=== PATIENT | female | born 2000 | race Caucasian/White ===

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

== ENCOUNTER → 2020-02-06 | Outpatient (REF) | payer OTHER ==
[2020-03-21 14:16] LABS: CHLAMYDIA DNA AMPLIFICATION NEGATIVE (NEGATIVE); GC DNA AMPLIFICATION NEGATIVE (NEGATIVE)
== END ==
LOC: M WUC 11:13
PROVIDERS: ATTEND Physician Assistant
DX: R30.0 Dysuria (principal)

== ENCOUNTER → 2020-03-17 | Outpatient (CLI) | payer BC, OTHER ==
[2020-03-17 12:08] LABS: BASO # 0.1 10^3/uL (0.0-0.2); BASO % 0.7 % (0.0-1.0); EOS # 0.1 10^3/uL (0.0-0.5); EOS % 1.3 % (0.0-3.0); HEMOGLOBIN 13.7 g/dl (12.0-15.5); LYMPH # 2.6 10^3/uL (1.5-5.0); LYMPH % 36.9 % (24.0-44.0); MEAN CORPUSCULAR HEMOGLOBIN 31.1 pg (27.0-33.0); MEAN CORPUSCULAR HGB CONC 33.4 g/dl (32.0-36.5); MEAN CORPUSCULAR VOLUME 93.2 fl (80.0-96.0); MONO # 0.5 10^3/uL (0.0-0.8); NEUTROPHILS # 3.8 10^3/uL (1.5-8.5); PLATELET COUNT, AUTOMATED 210 10^3/uL (150-450)
[2020-03-17 12:40] LABS: ALBUMIN 3.9 GM/DL (3.2-5.2); ALT/SGPT 15 U/L (12-78); AMYLASE 53 U/L (25-115); BILIRUBIN,TOTAL 0.2 MG/DL (0.2-1.0); BLOOD UREA NITROGEN 8 MG/DL (7-18); CALCIUM LEVEL 9.3 MG/DL (8.5-10.1); CARBON DIOXIDE LEVEL 27 MEQ/L (21-32); CHLORIDE LEVEL 106 MEQ/L (98-107); CREATININE FOR GFR 0.82 MG/DL (0.55-1.30); GLUCOSE, FASTING 87 MG/DL (70-100); LIPASE 92 U/L (73-393); POTASSIUM SERUM 3.8 MEQ/L (3.5-5.1); SODIUM LEVEL 140 MEQ/L (136-145); TOTAL PROTEIN 7.6 GM/DL (6.4-8.2)
[2020-03-17 15:42] LABS: CHLAMYDIA DNA AMPLIFICATION NEGATIVE (NEGATIVE); GC DNA AMPLIFICATION NEGATIVE (NEGATIVE)
--- NOTE | 2020-04-02 11:56 | REP ---
ABDOMINAL RADIOGRAPH: CLINICAL: Lower abdominal pain. TECHNIQUE: Two supine views of the abdomen and pelvis. FINDINGS: The bowel gas pattern is nonspecific. No organomegaly. No abnormal calcifications or foreign body. Skeletal structures are intact. IMPRESSION: Normal nonspecific examination. MTDD
== END ==
LOC: M WUC 09:15
PROVIDERS: ATTEND Physician Assistant
DX: R10.30 Lower abdominal pain, unspecified (principal)

== ENCOUNTER → 2020-08-13 | Outpatient (REF) | payer BC ==
[2020-08-13 18:39] LABS: HEMOGLOBIN 12.6 g/dl (12.0-15.5); MEAN CORPUSCULAR HEMOGLOBIN 30.3 pg (27.0-33.0); MEAN CORPUSCULAR HGB CONC 33.2 g/dl (32.0-36.5); MEAN CORPUSCULAR VOLUME 91.3 fl (80.0-96.0); PLATELET COUNT, AUTOMATED 197 10^3/uL (150-450); RED BLOOD COUNT 4.16 10^6/uL (4.00-5.40); WHITE BLOOD COUNT 7.8 10^3/uL (4.0-10.0)
[2020-08-13 19:45] LABS: HEPATITIS C VIRUS ABY INDEX 0.1 INDEX (<0.8); HIV 1&2 SCREEN CENTAUR NEGATIVE (NEGATIVE)
== END ==
LOC: M PLALAB 15:37
PROVIDERS: ATTEND Advanced Practice Midwife
DX: Z34.91 Encounter for supervision of normal pregnancy, unspecified, first trimester (principal); Z3A.09 9 weeks gestation of pregnancy

== ENCOUNTER → 2020-08-22 | Outpatient (CLI) | payer BC | LOC: M LABSMTC 10:34 | PROVIDERS: ATTEND Anesthesiology | DX: Z01.812 Encounter for preprocedural laboratory examination (principal); Z20.822 Contact with and (suspected) exposure to COVID-19 ==

== ENCOUNTER 2020-08-25 09:59 | Day surgery (SDC) | payer BC, OTHER ==
[~2020-08-25] VITALS: Ht 180.3 cm; Wt 82.6 kg
[~2020-08-25 09:59] MED LIST: LR 1,000 ML IV ONE
[2020-08-25] MEDS ORDERED: dexameTHASONE 4 MG/ML 1ML VIAL (J1100 PER 1MG) As Ordered ONE (10:43)
[2020-08-25] MEDS ORDERED: LIDOCAINE 2% 100MG/5ML SDV (FOR ANES.) As Ordered ONE (10:43)
[2020-08-25] MEDS ORDERED: ONDANSETRON 4MG/2ML VIAL As Ordered ONE (10:43)
[2020-08-25] MEDS ORDERED: MIDAZOLAM INJ 2MG/2ML VIAL (J2250 PER 1MG) As Ordered ONE (10:43)
[2020-08-25] MEDS ORDERED: propofoL 200 MG/20 ML VIAL As Ordered ONE (10:43)
[2020-08-25] MEDS ORDERED: fentaNYL 100 MCG/2 ML INJECTION (J3010) As Ordered ONE (10:43)
[2020-08-25] MEDS ORDERED: SCOPOLAMINE 1MG TRANSDERMAL PATCH As Ordered ONE (11:12)
[2020-08-25] MEDS ORDERED: KETOROLAC 60MG 2ML VIAL As Ordered ONE (11:45)
[2020-08-25] MEDS ORDERED: METOCLOPRAMIDE INJ 10MG/2ML VIAL (J2765 PER 1) IV PRN (12:30)
[2020-08-25] MEDS ORDERED: fentaNYL 100 MCG/2 ML INJECTION (J3010) IV PRN (12:30)
[2020-08-25] MEDS ORDERED: DOXYCYCLINE HYCLATE 100MG TABLET PO ONE (12:30)
[2020-08-25] MEDS ORDERED: ACETAMINOPHEN 500 MG TAB PO ONE (12:30)
[2020-08-25] MEDS ORDERED: LR 1,000 ML IV SCH (12:30)
[2020-08-25] MEDS ORDERED: ONDANSETRON 4MG/2ML VIAL IV PRN (12:30)
[2020-08-25] MEDS ORDERED: PERCOCET 5MG/325MG TAB PO PRN (12:30)
--- NOTE | 2020-08-25 13:15 | REP ---
INDICATION: POST OP IN PACU. COMPARISON: No comparison studies available.. TECHNIQUE: Transvaginal scanning. FINDINGS: Uterine dimensions are 7.3 x 5.3 x 5.7 cm. Endometrial echo is heterogeneous and thickened to 2.9 cm anteroposterior dimension. There are 2 cystic areas in the endometrium. No well-defined or definite gestational sac. No embryonic pole is seen. No free fluid noted. Normal ovaries are seen bilaterally. Right ovarian dimensions are 2.7 x 1.7 x 2.6 cm. The left ovary measures 2.1 x 1.5 x 1.7 cm. IMPRESSION: Heterogeneous material thickens the endometrium, 2.9 cm AP dimension. There are 2 cystic areas partially surrounded by echogenic components within the thickened endometrium. No embryonic pole is visible. <Electronically signed by Richard Hooker > 08/25/20 [id number]
[2020-08-25] MEDS ORDERED: PERCOCET 5MG/325MG TAB As Ordered ONE (13:48)
[2020-08-25 14:45] VITALS: BP 120/67
--- NOTE | 2020-08-25 14:51 | ROOPDOC ---
[facility] Report Of Operation Report of Operation DATE OF PROCEDURE: 08/25/20 DATE OF PROCEDURE: 08/25/20 DATE OF PROCEDURE: August 25, 2020 PREPROCEDURE DIAGNOSES: embryonic demise, 8 4/7 weeks POSTPROCEDURE DIAGNOSES: Same. PROCEDURE: D+E+C SURGEON: Savi Lepe MD ANESTHESIA: Gen. via LMA. ESTIMATED BLOOD LOSS: Approximately 50 mL. COMPLICATIONS: None. FINDINGS: Moderate amount of POC's, retroverted uterus PROCEDURE NOTE: Patient taken to the operating room where LMA anesthesia was induced. She was prepped and draped in a sterile fashion in the dorsal lithotomy position. The bladder was emptied with a catheter. Speculum was placed in the vagina. The anterior lip of the cervix was grasped with tenaculum. Cervix was dilated with tapered dilators. A #9 mm suction curetted was inserted through the internal os. The suction device was activated and the curette was gently rotated until products of conception were noted coming through the suction tubing. Sharp curettage was performed. Good hemostasis was noted. POC's were examined in the OR. A transabdominal ultrasound was performed. There was no gestational sac visualized at the conclusion of the procedure. All instruments removed. Sponges counts were correct. SAVI LEPE MD Aug 25, 2020 14:51
== END 2020-08-25 14:51 | disposition home or self-care (01) ==
LOC: M SDC 09:59
PROVIDERS: ATTEND Specialist
DX: O02.1 Missed abortion (principal); R06.83 Snoring
CPT/HCPCS: 59820; 76817; 88305; J1100; J1885; J2250; J2405; J3010

== ENCOUNTER → 2020-11-12 | Outpatient (REF) | payer BC | LOC: M PLALAB 10:09 | PROVIDERS: ATTEND Obstetrics & Gynecology | DX: O36.80X0 Pregnancy with inconclusive fetal viability, not applicable or unspecified (principal); Z3A.00 Weeks of gestation of pregnancy not specified ==

== ENCOUNTER → 2020-11-14 | Outpatient (CLI) | payer BC, OTHER | LOC: M LAB 10:49 | PROVIDERS: ATTEND Obstetrics & Gynecology | DX: O36.80X0 Pregnancy with inconclusive fetal viability, not applicable or unspecified (principal); Z3A.00 Weeks of gestation of pregnancy not specified ==

== ENCOUNTER → 2020-11-24 | Outpatient (REF) | payer BC | LOC: M SFHCWAGY 12:47 | PROVIDERS: ATTEND Obstetrics & Gynecology | DX: Z34.91 Encounter for supervision of normal pregnancy, unspecified, first trimester (principal); Z36.89 Encounter for other specified antenatal screening ==

== ENCOUNTER → 2020-11-24 | Outpatient (REF) | payer BC ==
[2020-11-24 13:43] LABS: HEMATOCRIT 38.7 % (36.0-47.0); HEMOGLOBIN 12.8 g/dl (12.0-15.5); MEAN CORPUSCULAR HEMOGLOBIN 30.9 pg (27.0-33.0); MEAN CORPUSCULAR HGB CONC 33.1 g/dl (32.0-36.5); MEAN CORPUSCULAR VOLUME 93.5 fl (80.0-96.0); PLATELET COUNT, AUTOMATED 186 10^3/uL (150-450); RED BLOOD COUNT 4.14 10^6/uL (4.00-5.40); WHITE BLOOD COUNT 6.9 10^3/uL (4.0-10.0)
[2020-11-24 15:10] LABS: HIV 1&2 SCREEN CENTAUR NEGATIVE (NEGATIVE)
== END ==
LOC: M PLALAB 10:35
PROVIDERS: ATTEND Obstetrics & Gynecology
DX: Z34.91 Encounter for supervision of normal pregnancy, unspecified, first trimester (principal); Z36.89 Encounter for other specified antenatal screening

== ENCOUNTER → 2020-12-22 | Outpatient (CLI) | payer OTHER, BC | LOC: M PLALAB 14:09 | PROVIDERS: ATTEND Specialist | DX: Z34.82 Encounter for supervision of other normal pregnancy, second trimester (principal); Z36.89 Encounter for other specified antenatal screening ==

== ENCOUNTER → 2021-01-19 | Outpatient (REF) | payer OTHER, BC | LOC: M SFHCWAGY 17:13 | PROVIDERS: ATTEND Advanced Practice Midwife | DX: Z34.82 Encounter for supervision of other normal pregnancy, second trimester (principal); Z36.89 Encounter for other specified antenatal screening ==

== ENCOUNTER → 2021-02-02 | Outpatient (CLI) | payer BC ==
[~2021-02-02] MED LIST changes: +ACET-683 PO; -LR 1,000 ML IV ONE; +PRENTAB9 PO
== END ==
LOC: M WHC 12:55
PROVIDERS: ATTEND Advanced Practice Midwife
DX: Z34.82 Encounter for supervision of other normal pregnancy, second trimester (principal); Z3A.19 19 weeks gestation of pregnancy

== ENCOUNTER → 2021-02-08 | Outpatient (CLI) | payer BC ==
[2021-02-08 14:25] LABS: APPEARANCE, URINE CLEAR (CLEAR); BACTERIA, URINE AUTO 1+ (NEGATIVE); BILIRUBIN, URINE AUTO NEGATIVE (NEGATIVE); BLOOD, URINE BLOOD NEGATIVE (NEGATIVE); COLOR, URINE STRAW (YELLOW); GLUCOSE, URINE (UA) AUTO 1+ mg/dL (NEGATIVE); KETONE, URINE AUTO NEGATIVE (NEGATIVE); LEUKOCYTE ESTERASE, URINE AUTO NEGATIVE (NEGATIVE); NITRITE, URINE AUTO NEGATIVE (NEGATIVE); PROTEIN, URINE AUTO NEGATIVE (NEGATIVE); RBC, URINE AUTO 0 /HPF (0-3); SPECIFIC GRAVITY URINE AUTO 1.002 (1.002-1.035); SQUAMOUS EPITHELIAL CELL UR AU 0 /HPF (0-6); UROBILINOGEN, URINE AUTO 0.2 mg/dL (0.0-2.0); WBC, URINE AUTO 0 /HPF (0-3)
== END ==
LOC: M PLALAB 10:59
PROVIDERS: ATTEND Advanced Practice Midwife
DX: R30.0 Dysuria (principal)

== ENCOUNTER → 2021-03-16 | Outpatient (CLI) | payer BC, OTHER ==
--- NOTE | 2021-03-17 05:48 | REP ---
INDICATION: F/U ANATOMY COMPARISON: 02/02/2021 TECHNIQUE: Transabdominal obstetrical ultrasound with color Doppler evaluation. FINDINGS: Examination demonstrates a single live intrauterine in cephalic presentation. motion is identified by technologist. Placenta is noted posterior and grade 1 without evidence for placenta previa or abruption. Amniotic fluid volume is normal. Cervix measures 3.8 cm in length and appears closed.. Selected gestational age: 25 weeks 1 day with ZACHARY 06/28/2021. Gestational age by current measurements 26 weeks 0 days with ZACHARY 06/22/2021. FHR equals 142 beats per minute. Estimated weight 879 grams (77thpercentile). Anatomical assessment demonstrates normal structures including spine. IMPRESSION: Single live intrauterine in cephalic presentation demonstrating appropriate interval growth. In conjunction with prior examination anatomical assessment is complete and normal. <Electronically signed by Mingo Fraga > 03/17/21 05
== END ==
LOC: M WHC 13:45
PROVIDERS: ATTEND Advanced Practice Midwife
DX: Z36.2 Encounter for other antenatal screening follow-up (principal); Z3A.25 25 weeks gestation of pregnancy

== ENCOUNTER → 2021-03-23 | Outpatient (CLI) | payer BC, OTHER ==
[2021-03-23 13:47] LABS: HEMATOCRIT 35.5 % (36.0-47.0); HEMOGLOBIN 11.9 g/dl (12.0-15.5); MEAN CORPUSCULAR HEMOGLOBIN 32.3 pg (27.0-33.0); MEAN CORPUSCULAR HGB CONC 33.5 g/dl (32.0-36.5); MEAN CORPUSCULAR VOLUME 96.5 fl (80.0-96.0); PLATELET COUNT, AUTOMATED 175 10^3/uL (150-450); RED BLOOD COUNT 3.68 10^6/uL (4.00-5.40); WHITE BLOOD COUNT 9.8 10^3/uL (4.0-10.0)
[2021-03-23 15:51] LABS: GC DNA AMPLIFICATION NEGATIVE (NEGATIVE)
== END ==
LOC: M PLALAB 10:11
PROVIDERS: ATTEND Specialist
DX: Z34.02 Encounter for supervision of normal first pregnancy, second trimester (principal); Z36.89 Encounter for other specified antenatal screening
CPT/HCPCS: 36415; 82950; 85027; 86850; 86900; 86901; 87491; 87591; J2790

== ENCOUNTER 2021-04-30 16:52 | Outpatient (CLI) | payer BC, OTHER, MEDICAID ==
[~2021-04-30] VITALS: Ht 180.3 cm; Wt 95.0 kg
[2021-04-30 17:12] VITALS: BP 137/85
[2021-04-30] MEDS ORDERED: PRENTAB9 PO (17:19)
[2021-04-30] MEDS ORDERED: HOME MED LIST COMPLETE! XX SCH (17:20)
[2021-04-30 18:31] LABS: APPEARANCE, URINE CLEAR (CLEAR); BACTERIA, URINE AUTO NEGATIVE (NEGATIVE); BILIRUBIN, URINE AUTO NEGATIVE (NEGATIVE); BLOOD, URINE BLOOD NEGATIVE (NEGATIVE); COLOR, URINE STRAW (YELLOW); GLUCOSE, URINE (UA) AUTO NEGATIVE (NEGATIVE); KETONE, URINE AUTO NEGATIVE (NEGATIVE); LEUKOCYTE ESTERASE, URINE AUTO NEGATIVE (NEGATIVE); NITRITE, URINE AUTO NEGATIVE (NEGATIVE); PROTEIN, URINE AUTO NEGATIVE (NEGATIVE); RBC, URINE AUTO 0 /HPF (0-3); SQUAMOUS EPITHELIAL CELL UR AU 0 /HPF (0-6); UROBILINOGEN, URINE AUTO 0.2 mg/dL (0.0-2.0); WBC, URINE AUTO 1 /HPF (0-3)
--- NOTE | 2021-04-30 18:33 | IPNPDOC ---
Text Note Date of Service The patient was seen on 04/30/21. NOTE S: Abdiaziz is a 20 year old female at 31 10/07 who presents to labor and delivery triage with concerns of rupture of membranes. She noted fluid leaking from the vagina for past six hours, emptied her bladder and continued to note leaking. She denies vaginal bleeding or uterine contractions. She notes positive movement. Her has been noncomplicated. O: VS-see below. FHR - 140 with moderate variability and positive accels [place] reveals no uterine contractions General - alert and oriented x 3 Respiratory - breathing comfortably on room air, no use of accessory muscles Abdomen - soft and nontender Pelvic - SSE reveals moderate amount of physiologic discharge in vagina, negative nitrazine test, neg for fluid pooling in vagina, no fluid at os with valsalva. SVE reveals cervix that is closed, thick and high. Microscopy is negative for ferning. UA is negative A: IUP at 10/07, rule out SROM. Reassuring monitoring strip. Not ruptured, no evidence UTI P: Discharged home. Routine precautions. Keep next appt Merary Nelson CNM Apr 30, 2021 18:33
== END 2021-04-30 19:20 | disposition home or self-care (01) ==
LOC: M LDO 16:52
PROVIDERS: ATTEND Advanced Practice Midwife
DX: O26.893 Other specified pregnancy related conditions, third trimester (principal); Z3A.31 31 weeks gestation of pregnancy
CPT/HCPCS: 59025; 81001; 87086; G0378; G0463

== ENCOUNTER → 2021-05-25 | Outpatient (REF) | payer OTHER | LOC: M SFHCWAGY 10:01 | PROVIDERS: ATTEND Specialist | DX: Z34.03 Encounter for supervision of normal first pregnancy, third trimester (principal) ==

== ENCOUNTER → 2021-08-16 | Outpatient (REF) | payer BC, MEDICAID | LOC: M PLALAB 11:14 | PROVIDERS: ATTEND Advanced Practice Midwife | DX: Z12.4 Encounter for screening for malignant neoplasm of cervix (principal) ==

== ENCOUNTER → 2022-09-25 | Outpatient (REF) | payer OTHER, BC, MEDICAID | LOC: M LAB REF 08:38 | PROVIDERS: ATTEND Internal Medicine | DX: J03.90 Acute tonsillitis, unspecified (principal) ==

== ENCOUNTER → 2023-05-23 | Outpatient (REF) | payer BC, OTHER, MEDICAID ==
[2023-05-23 15:22] LABS: CHLAMYDIA DNA AMPLIFICATION NEGATIVE (NEGATIVE); GC DNA AMPLIFICATION NEGATIVE (NEGATIVE)
== END ==
LOC: M SFHCWAGY 13:24
PROVIDERS: ATTEND Advanced Practice Midwife
DX: Z34.81 Encounter for supervision of other normal pregnancy, first trimester (principal)

== ENCOUNTER → 2023-05-30 | Outpatient (CLI) | payer BC, OTHER, MEDICAID | LOC: M RAD 08:37 | PROVIDERS: ATTEND Obstetrics & Gynecology | DX: O44.51 Low lying placenta with hemorrhage, first trimester (principal); Z3A.15 15 weeks gestation of pregnancy ==

== ENCOUNTER → 2023-06-16 | Outpatient (CLI) | payer BC, OTHER, MEDICAID | LOC: M WHC 10:05 | PROVIDERS: ATTEND Obstetrics & Gynecology | DX: Z34.92 Encounter for supervision of normal pregnancy, unspecified, second trimester (principal); Z3A.19 19 weeks gestation of pregnancy ==

== ENCOUNTER → 2023-07-31 | Outpatient (CLI) | payer BC, OTHER, MEDICAID ==
[2023-07-31 16:00] LABS: HEMATOCRIT 34.8 % (36.0-47.0); HEMOGLOBIN 11.7 g/dl (12.0-15.5); MEAN CORPUSCULAR HEMOGLOBIN 32.7 pg (27.0-33.0); MEAN CORPUSCULAR HGB CONC 33.6 g/dl (32.0-36.5); MEAN CORPUSCULAR VOLUME 97.2 fl (80.0-96.0); PLATELET COUNT, AUTOMATED 178 10^3/uL (150-450); RED BLOOD COUNT 3.58 10^6/uL (4.00-5.40); WHITE BLOOD COUNT 10.4 10^3/uL (4.0-10.0)
== END ==
LOC: M PLALAB 12:19
PROVIDERS: ATTEND Obstetrics & Gynecology
DX: Z34.82 Encounter for supervision of other normal pregnancy, second trimester (principal)
CPT/HCPCS: 36415; 82950; 85027; 86850; 86870; 86900; 86901; 87490; 87590; J2790

== ENCOUNTER 2023-09-17 08:57 | Outpatient (CLI) | payer BC, OTHER, MEDICAID ==
[~2023-09-17] VITALS: Ht 180.3 cm; Wt 100.4 kg
[2023-09-17 09:27] VITALS: BP 164/79
[2023-09-17 09:28] VITALS: BP 133/68
[2023-09-17] MEDS ORDERED: ASPI81CH33 PO (09:56)
[2023-09-17] MEDS ORDERED: HOME MED LIST COMPLETE! XX SCH (10:00)
== END 2023-09-17 10:05 | disposition home or self-care (01) ==
LOC: M LDO 08:57
PROVIDERS: ATTEND Specialist
DX: O26.853 Spotting complicating pregnancy, third trimester (principal); Z87.59 Personal history of other complications of pregnancy, childbirth and the puerperium; Z3A.32 32 weeks gestation of pregnancy
CPT/HCPCS: 59025; G0463

== ENCOUNTER → 2023-10-12 | Outpatient (CLI) | payer BC, MEDICAID ==
[~2023-10-12] MED LIST changes: +ASPI81CH33 PO
[2023-10-12 13:34] LABS: HEMATOCRIT 35.6 % (36.0-47.0); HEMOGLOBIN 12.2 g/dl (12.0-15.5); MEAN CORPUSCULAR HGB CONC 34.3 g/dl (32.0-36.5); MEAN CORPUSCULAR VOLUME 96.2 fl (80.0-96.0); PLATELET COUNT, AUTOMATED 151 10^3/uL (150-450); WHITE BLOOD COUNT 11.6 10^3/uL (4.0-10.0)
== END ==
LOC: M PLALAB 11:03
PROVIDERS: ATTEND Obstetrics & Gynecology
DX: R06.02 Shortness of breath (principal)

== ENCOUNTER → 2023-10-12 | Outpatient (REF) | payer BC, MEDICAID | LOC: M PLALAB 11:56 | PROVIDERS: ATTEND Obstetrics & Gynecology | DX: Z3A.36 36 weeks gestation of pregnancy (principal) ==

== ENCOUNTER → 2023-10-24 | Outpatient (CLI) | payer BC, MEDICAID ==
[2023-10-24 17:53] LABS: HEMATOCRIT 36.4 % (36.0-47.0); MEAN CORPUSCULAR HEMOGLOBIN 32.6 pg (27.0-33.0); MEAN CORPUSCULAR VOLUME 98.9 fl (80.0-96.0); PLATELET COUNT, AUTOMATED 181 10^3/uL (150-450); RED BLOOD COUNT 3.68 10^6/uL (4.00-5.40); WHITE BLOOD COUNT 11.3 10^3/uL (4.0-10.0)
[2023-10-24 18:13] LABS: URIC ACID 3.8 MG/DL (3.1-7.8)
[2023-10-24 18:15] LABS: LDH LACTATE DEHYDROGENASE 183 U/L (120-246)
[2023-10-24 18:16] LABS: ALT/SGPT < 9 U/L (7.0-40); AST/SGOT 17 U/L (<34); BILIRUBIN,TOTAL 0.4 MG/DL (0.3-1.2); CREATININE FOR GFR 0.52 MG/DL (0.55-1.30); GLOMERULAR FILTRATION RATE > 60.0 (>60)
[2023-10-24 18:54] LABS: CREATININE,RANDOM URINE 56.5 MG/DL
[2023-10-24 18:59] LABS: TOTAL PROTEIN,RANDOM URINE < 6.0 MG/DL (0.0-14.0)
== END ==
LOC: M PLALAB 15:33
PROVIDERS: ATTEND Advanced Practice Midwife
DX: Z34.83 Encounter for supervision of other normal pregnancy, third trimester (principal)

== ENCOUNTER → 2024-04-02 | Outpatient (REF) | payer BC, MEDICAID | LOC: M PLALAB 11:30 | PROVIDERS: ATTEND Nurse Practitioner Family | DX: Z12.4 Encounter for screening for malignant neoplasm of cervix (principal) ==

== ENCOUNTER → 2024-04-02 | Outpatient (CLI) | payer BC, MEDICAID ==
[2024-04-02 15:47] LABS: BASO % 0.6 % (0.0-1.0); EOS # 0.1 10^3/uL (0.0-0.5); EOS % 1.4 % (0.0-3.0); HEMATOCRIT 41.9 % (36.0-47.0); LYMPH % 48.4 % (24.0-44.0); MEAN CORPUSCULAR HEMOGLOBIN 30.9 pg (27.0-33.0); MEAN CORPUSCULAR HGB CONC 33.4 g/dl (32.0-36.5); MEAN CORPUSCULAR VOLUME 92.5 fl (80.0-96.0); MONO # 0.4 10^3/uL (0.0-0.8); MONO % 6.7 % (2.0-8.0); NEUTROPHILS # 2.7 10^3/uL (1.5-8.5); NEUTROPHILS % 42.7 % (36.0-66.0); PLATELET COUNT, AUTOMATED 188 10^3/uL (150-450); RED BLOOD COUNT 4.53 10^6/uL (4.00-5.40); WHITE BLOOD COUNT 6.3 10^3/uL (4.0-10.0)
[2024-04-02 15:48] LABS: PERCENT SATURATION 20.9 % (13.2-45.0)
[2024-04-02 15:49] LABS: FERRITIN 34.3 NG/ML (7.3-270.7)
[2024-04-02 15:50] LABS: FREE T4 1.06 NG/DL (0.89-1.76)
[2024-04-02 15:51] LABS: THYROID STIMULATING HORMONE 1.55 uIU/ML (0.55-4.78)
== END ==
LOC: M PLALAB 11:53
PROVIDERS: ATTEND Nurse Practitioner Family
DX: R53.83 Other fatigue (principal)

== ENCOUNTER → 2025-05-15 | Outpatient (REF) | payer BC, MEDICAID ==
[2025-05-15 16:47] LABS: Trichomonas vaginalis (AMP) NOT DETECTED (NEGATIVE)
[2025-05-15 17:10] LABS: GC DNA AMPLIFICATION NEGATIVE (NEGATIVE)
== END ==
LOC: M PLALAB 13:58
PROVIDERS: ATTEND Nurse Practitioner Family
DX: N76.0 Acute vaginitis (principal); R30.0 Dysuria